=== PATIENT | female | born 1950 | race Caucasian/White ===

== ENCOUNTER 2018-07-11 16:50 | Observation (INO) | payer OTHER ==
--- NOTE | 2018-07-11 17:06 | EDPHY ---
H & P Stated Complaint: CP Time Seen by Provider: 07/11/18 17:06 - Personal History Current Tetanus/Diphtheria Vaccine: Yes - Medical/Surgical History Hx Asthma: No Hx Chronic Respiratory Disease: No Hx Diabetes: No Hx Cardiac Disease: No Hx Renal Disease: No Hx Cirrhosis: No Hx Alcoholism: No Hx HIV/AIDS: No Hx Splenectomy or Spleen Trauma: No Other PMH: HTN, GERD, NEUROPATHY, ARTHRITIS - Social History Smoking Status: Never smoked Constitutional: Initial Vital Signs Temperature (C) 36.6 C 07/11/18 17:02 Heart Rate 105 H 07/11/18 17:02 Respiratory Rate 16 07/11/18 17:02 Blood Pressure 155/101 H 07/11/18 17:02 O2 Sat (%) 95 07/11/18 17:02 O2 Delivery Mode Room Air Allergies/Adverse Reactions: moxifloxacin [From Avelox] Allergy (Verified 07/11/18 17:00) Home Medications: Medication Instructions Recorded Aspirin 81mg (*) 07/11/18 Diltiazem 07/11/18 Gabapentin 07/11/18 Naproxen 07/11/18 Protonix 07/11/18 Robaxin-750 07/11/18 Valsartan 07/11/18 Xanax 07/11/18 Medical Decision Making - Diagnostics Imaging Results: Imaging Impressions Chest/Thorax CTA 07/11/18 17:38 Impression: 1. Technically suboptimal assessment of the segmental branches because of the IV contrast bolus. Consider repeat CT imaging for more conclusive evaluation. There is no evidence of a central pulmonary artery saddle embolus. There is no secondary evidence of elevated right-sided heart pressures. 2. LAD coronary artery atherosclerotic calcification. 3. Sequela of old granulomatous disease. Findings were discussed with Liang Gutierrez MD at 18:29, on 07/11/2018. He indicated that the patient would be admitted and may undergo coronary artery heart catheterization given her extensive LAD atherosclerotic calcific plaque ( a repeat bolus/CTPA to more conclusively reevaluate the pulmonary arterial tree is deferred at this point). Imaging: Discussed imaging studies w/ manager call Radiologist, I viewed and interpreted images myself ED Course/Re-evaluation: CHIEF COMPLAINT: Chest pain HISTORY OF PRESENT ILLNESS: The patient is a 67 y/o female with a history of GERD and hypertension complaining of chest pain onset 3 days ago. Around one year ago she saw a postal service mail processor in [place] and had a normal stress test. She did not have a heart catheterization at that time. Several days ago her symptoms began; she primarily has a sharp pain under her left breast and some pain under her sternum. There is a mild sensation of chest pressure and left arm pain but she is unsure if it is due to an old shoulder injury. These symptoms are similar to her GERD but do not improve like normal GERD episodes. Drinking water and taking a baby aspirin did not alleviate her symptoms. She did recently drive to [place] from [place]. No fever, headache, shortness of breath, abdominal pain, urinary or bowel complaints, numbness, paresthesias. She does have significant familial cardiac history. REVIEW OF SYSTEMS: A comprehensive 10 system review of systems is otherwise negative aside from elements mentioned in the history of present illness and medical decision making. PHYSICAL EXAM: HR, BP, O2 Sat, RR. Temp noted General Appearance: Alert, well hydrated, appropriate, and non-toxic appearing. Head: Atraumatic without scalp tenderness or obvious injury Eyes: Pupils equal, round, reactive to light and accommodation, EOMI, no trauma , no injection. Ears: Clear bilaterally, no perforation, normal landmarks Nose: Atraumatic, no rhinorrhea, clear. Throat: There is no erythema or exudates, no lesions, normal tonsils, mucus membranes moist. Neck: Supple, 2+ carotid upstroke, nontender, no lymphadenopathy. Respiratory: No retractions, no distress, no wheezes, and no accessory muscle use. Lungs are clear to auscultation bilaterally. Cardiovascular: Regular rate and rhythm, no murmurs, rubs, or gallops. Bilateral carotid, radial, dorsalis pedis, and posterior tibial pulses intact. Good capillary refill all extremities. Gastrointestinal: Abdomen is soft, nontender, non-distended, no masses, no rebound, no guarding, no peritoneal signs. Musculoskeletal: Normal active ROM of all extremities, atraumatic. Neurological: Alert, appropriate, and interactive. The patient has normal DTRs and non-focal cranial nerves, motor, sensory, and cerebellar exam. Skin: No rashes, good turgor, no nodules on palpation. Past medical history: Hypertension, GERD, neuropathy, arthritis, DVT while Past surgical history: Denies Family history: Father had a stroke at 56, Mother of CHF, Grandparents had KS's, Brother and sister do not have any known cardiac disease Social history: at bedside, retired, originally from [place] DIAGNOSTICS/PROCEDURES/CRITICAL CARE TIME: EKG: The 12 lead EKG was interpreted by myself as sinus rhythm with a rate of 94 , possible lateral ischemia. See hard copy and/or "tracemaster" electronic copy for interpretation. Chest CTA: The contrast bolus was inadequate so this is an inadequate PE study. There is no evidence of a central PE. There is significant LAD calcification on the study. DIFFERENTIAL DIAGNOSIS: The differential diagnosis for the patient's chest pain included but was not limited to myocardial ischemia, pulmonary embolus, chest wall pain, pleural inflammation, and pulmonary infectious causes. MEDICAL DECISION MAKING: The patient is a 67 y/o female with a history of GERD and hypertension presenting with left-sided and sternal chest pain, onset 3 days ago. She has a normal physical exam but significant familial cardiac history. She also recently drove home to [place] from [place]. Labs and EKG ordered. 1700: I interpreted patient's EKG as sinus rhythm with a rate of 94 and a possible lateral ischemia. Labs still pending. 1735: Patient's D-dimer is elevated but she does have a normal troponin; chest CTA ordered. Patient's troponin is very sensitive due to the length of time of her symptoms and she has a low heart score. 1820: I spoke with Dr. Mcclain, radiologist, regarding patient's chest CTA. The contrast bolus was inadequate so this is an inadequate PE study. There is no evidence of a central PE. There is significant LAD calcification on the study. She will need to be admitted for further evaluation and observation. Cardiology and hospitalist paged. 1826: Reassessed patient and discussed imaging and laboratory study findings with the patient. She reports that she had some calcification in the LAD in [place] during prior studies, but there was no further investigation. I have shared my decision making with the patient. Patient and her are comfortable with plan for admission. 1828: I consulted with the hospitalist service, Dr. Orellana accepts admission of this patient for further observation and evaluation. Cardiology consult still pending. 1838: I consulted with Dr. Guevara, postal service mail processor, regarding this patient. He agrees to consult on this patient during her admission. - Data Points Laboratory Results: Laboratory Results 02/11/19 17:05 07/11/18 17:05 07/11/18 07/11/18 07/11/18 17:14 17:05 17:05 WBC RBC Hgb Hct MCV MCH MCHC RDW Plt Count MPV Neut % (Auto) Lymph % (Auto) [place] % (Auto) Eos % (Auto) Baso % (Auto) Nucleat RBC Rel Count Absolute Neuts (auto) Absolute Lymphs (auto) Absolute Monos (auto) Absolute Eos (auto) Absolute Basos (auto) Absolute Nucleated RBC Immature Gran % Immature Gran # D-Dimer 0.76 ug/mLFEU H ug/mLFEU (0.00-0.50) Sodium 136 mEq/L mEq/L (135-145) Potassium 4.0 mEq/L mEq/L (3.5-5.2) Chloride 105 mEq/L mEq/L (97-110) Carbon Dioxide 23 mEq/l mEq/l (22-31) Anion Gap 8 mEq/L mEq/L (6-14) BUN 20 mg/dL mg/dL (7-23) Creatinine 0.8 mg/dL mg/dL (0.6-1.0) Estimated GFR > 60 Glucose 120 mg/dL H mg/dL (70-100) Calcium 9.9 mg/dL mg/dL (8.5-10.4) POC Troponin I 0.00 ng/mL ng/mL (0.00-0.08) NT-Pro-B Natriuret Pep 64 pg/mL pg/mL (0-125) 07/11/18 17:05 WBC 7.80 10^3/uL 10^3/uL (3.80-9.50) RBC 4.75 10^6/uL 10^6/uL (4.18-5.33) Hgb 13.4 g/dL g/dL (12.6-16.3) Hct 40.6 % % (38.0-47.0) MCV 85.5 fL fL (81.5-99.8) MCH 28.2 pg pg (27.9-34.1) MCHC 33.0 g/dL g/dL (32.4-36.7) RDW 13.9 % % (11.5-15.2) Plt Count 339 10^3/uL 10^3/uL (150-400) MPV 9.2 fL fL (8.7-11.7) Neut % (Auto) 59.8 % % (39.3-74.2) Lymph % (Auto) 24.0 % % (15.0-45.0) [place] % (Auto) 9.9 % % (4.5-13.0) Eos % (Auto) 5.0 % % (0.6-7.6) Baso % (Auto) 1.0 % % (0.3-1.7) Nucleat RBC Rel Count 0.0 % % (0.0-0.2) Absolute Neuts (auto) 4.67 10^3/uL 10^3/uL (1.70-6.50) Absolute Lymphs (auto) 1.87 10^3/uL 10^3/uL (1.00-3.00) Absolute Monos (auto) 0.77 10^3/uL 10^3/uL (0.30-0.80) Absolute Eos (auto) 0.39 10^3/uL 10^3/uL (0.03-0.40) Absolute Basos (auto) 0.08 10^3/uL 10^3/uL (0.02-0.10) Absolute Nucleated RBC 0.00 10^3/uL 10^3/uL (0-0.01) Immature Gran % 0.3 % % (0.0-1.1) Immature Gran # 0.02 10^3/uL 10^3/uL (0.00-0.10) D-Dimer Sodium Potassium Chloride Carbon Dioxide Anion Gap BUN Creatinine Estimated GFR Glucose Calcium POC Troponin I NT-Pro-B Natriuret Pep Point of Care Test Results: Chemistry 07/11/18 17:14 POC Troponin I 0.00 ng/mL ng/mL (0.00-0.08) Departure - Departure Disposition: [facility] Inpatient Acute Clinical Impression: Chest pain Qualifiers: Chest pain type: other chest pain Qualified Code(s): R07.89 - Other chest pain Condition: Fair Instructions: Chest Pain (ED) Additional Instructions: 1. Follow-up with your primary doctor within 72 hours. 2. Return to the Emergency Department for fever, chest pain, shortness of breath , increasing pain or other worsening of condition. 3. Follow up with a postal service mail processor for further testing, as soon as possible, within one week. 4. As we discussed, it is impossible to fully rule out heart disease as the cause of your chest pain in the emergency department. We would be happy to reevaluate you and observe you in the hospital at any time. Referrals: Norma Ontiveros MD [Primary Care Provider] - As per Instructions Stephan Guevara MD [Medical Doctor] - As per Instructions Report Scribed for: Liang Gutierrez Report Scribed by: Laurie Vale Date of Report: 07/11/18 Time of Report: 17:25
[2018-07-11 17:33] LABS: PLATELET COUNT 339 10^3/uL (150-400)
[2018-07-11] MEDS ORDERED: IOHEXOL 350mgI/ML (OMNIPAQUE) 150 ML BTL IV ONE (17:46)
[2018-07-11] MEDS ORDERED: ONDANSETRON DISINTEGRATING 4 MG TAB PO PRN (19:25)
[2018-07-11] MEDS ORDERED: ACETAMINOPHEN 325 MG TAB PO PRN ×2 (19:25→20:33)
[2018-07-11] MEDS ORDERED: ONDANSETRON 4 MG/2 ML VIAL IVP PRN (19:25)
--- NOTE | 2018-07-11 19:44 | PDGENHP ---
History and Physical - Chief Complaint Chest pain - History of Present Illness This is a 67 y/o female with history of HTN, GERD, neuropathy and arthritis presenting to the emergency room after experiencing intermittent chest pain for the last 3 days. Nothing provokes it. It radiates to her left shoulder but she is hesitant to say it is from the chest pain because she has had a left shoulder injury in the past. Chest pain is characterized as dull sharp sometimes underneath her left nipple and sometimes to her sternum. It comes at random, doesn't appear to be only during exertional episodes. She often confuses it for her acid reflux however this time the pain does not go away. She recently moved from [place] in February to be closer to her children and grandchildren. She reports flying out to [place] last Wednesday and drove her car over the weekend back to [place] making frequent pit-stops with her . She has had this in the past. In fact, she had a warp spinner in [place] and had a chemical stress test performed less than a year ago which was unremarkable. Denies vomiting, fevers, chills, diarrhea, shortness of breath. She is being admitting for further diagnostic work-up and monitoring. Past Medical History: HTN, GERD, neuropathy, arthritis Past Surgical History: Total hysterectomy s/p uterine CA stage I (~2011), Cholecystectomy (~2008), L4-L5 fusion (~2008) Social: , lives in [place], recently moved from [place]. 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 Denies tobacco or illicit drug use. Occasionally drinks wine, ~2 glasses/week. History Information - Allergies/Home Medication List Allergies/Adverse Reactions: moxifloxacin [From Avelox] Allergy (Verified 07/11/18 17:00) Home Medications: Aspirin 81mg (*) 07/11/18 [Last Taken Unknown] Diltiazem 07/11/18 [Last Taken Unknown] Gabapentin 07/11/18 [Last Taken Unknown] Naproxen 07/11/18 [Last Taken Unknown] Protonix 07/11/18 [Last Taken Unknown] Robaxin-750 07/11/18 [Last Taken Unknown] Valsartan 07/11/18 [Last Taken Unknown] Xanax 07/11/18 [Last Taken Unknown] I have personally reviewed and updated: family history, medical history, social history, surgical history Past Medical History: See HPI list - Surgical History Additional surgical history: See HPI list - Family History Additional family history: Father had a stroke at age 56. Mother of CHF - Social History Smoking Status: Never smoked Alcohol Use: Occasionally Drug Use: None Review of Systems Review of Systems: ROS: 10pt was reviewed & negative except for what was stated in HPI & below Constitutional: Reports: no symptoms EENMT: Reports: no symptoms Cardiac: Reports: chest pain Respiratory: Reports: no symptoms Gastrointestinal: Reports: nausea (Mild) Genitourinary: Reports: no symptoms Muscolosketal: Reports: no symptoms Skin: Reports: no symptoms Neurological: Reports: no symptoms Hematologic/Lymphatic: Reports: no symptoms Immunologic/Allergy: Reports: other (Moxifloxacin) Physical Exam Physical Exam: Lab data and imaging were reviewed. Case discussed with admitting physician, Dr. Jose Alberto Orellana Trop: 0.00 D-Dimer: 0.76 EKG: Sinus tachycardia CTA Chest: No evidence of central pulmonary artery saddle embolus. LAD coronary artery atherosclerotic calcification. It was noted imaging was suboptimal of the segmental branches because of the IV contrast bolus. Temp Pulse Resp BP Pulse Ox 36.6 C 105 H 16 155/101 H 95 07/11/18 17:02 07/11/18 17:02 07/11/18 17:02 07/11/18 17:02 07/11/18 17:02 Constitutional: no apparent distress, appears nourished, not in pain Eyes: PERRL, anicteric sclera, EOMI Ears, Nose, Mouth, Throat: moist mucous membranes, hearing normal, ears appear normal, no oral mucosal ulcers Cardiovascular: regular rate and rhythym, no murmur, rub, or gallop, tachycardia , No edema Peripheral Pulses: 2+: dorsalis-pedis (R) (Radial 2+), dorsalis-pedis (L) ( Radial 2+) Respiratory: no respiratory distress, no rales or rhonchi, clear to auscultation Gastrointestinal: normoactive bowel sounds, soft, non-tender abdomen, no palpable masses Genitourinary: no bladder fullness, no bladder tenderness Skin: warm, normal color, no rashes or abrasions, no fluctuance, no induration, No mottled Musculoskeletal: full muscle strength, no muscle tenderness, normal joint ROM, no joint effusions Neurologic: AAOx3, sensation intact bilaterally, CN II-XII Intact Psychiatric: interacting appropriately, not anxious, not encephalopathic, thought process linear Lymph, Heme, Immunologic: no cervical LAD, no supraclavicular LAD Lab Data & Imaging Review 07/11/18 17:05 07/11/18 17:05 WBC 7.80 10^3/uL (3.80-9.50) 07/11/18 17:05 RBC 4.75 10^6/uL (4.18-5.33) 07/11/18 17:05 Hgb 13.4 g/dL (12.6-16.3) 07/11/18 17:05 Hct 40.6 % (38.0-47.0) 07/11/18 17:05 MCV 85.5 fL (81.5-99.8) 07/11/18 17:05 MCH 28.2 pg (27.9-34.1) 07/11/18 17:05 MCHC 33.0 g/dL (32.4-36.7) 07/11/18 17:05 RDW 13.9 % (11.5-15.2) 07/11/18 17:05 Plt Count 339 10^3/uL (150-400) 07/11/18 17:05 MPV 9.2 fL (8.7-11.7) 07/11/18 17:05 Neut % (Auto) 59.8 % (39.3-74.2) 07/11/18 17:05 Lymph % (Auto) 24.0 % (15.0-45.0) 07/11/18 17:05 [place] % (Auto) 9.9 % (4.5-13.0) 07/11/18 17:05 Eos % (Auto) 5.0 % (0.6-7.6) 07/11/18 17:05 Baso % (Auto) 1.0 % (0.3-1.7) 07/11/18 17:05 Nucleat RBC Rel Count 0.0 % (0.0-0.2) 07/11/18 17:05 Absolute Neuts (auto) 4.67 10^3/uL (1.70-6.50) 07/11/18 17:05 Absolute Lymphs (auto) 1.87 10^3/uL (1.00-3.00) 07/11/18 17:05 Absolute Monos (auto) 0.77 10^3/uL (0.30-0.80) 07/11/18 17:05 Absolute Eos (auto) 0.39 10^3/uL (0.03-0.40) 07/11/18 17:05 Absolute Basos (auto) 0.08 10^3/uL (0.02-0.10) 07/11/18 17:05 Absolute Nucleated RBC 0.00 10^3/uL (0-0.01) 07/11/18 17:05 Immature Gran % 0.3 % (0.0-1.1) 07/11/18 17:05 Immature Gran # 0.02 10^3/uL (0.00-0.10) 07/11/18 17:05 D-Dimer 0.76 ug/mLFEU (0.00-0.50) H 07/11/18 17:05 Sodium 136 mEq/L (135-145) 07/11/18 17:05 Potassium 4.0 mEq/L (3.5-5.2) 07/11/18 17:05 Chloride 105 mEq/L (97-110) 07/11/18 17:05 Carbon Dioxide 23 mEq/l (22-31) 07/11/18 17:05 Anion Gap 8 mEq/L (6-14) 07/11/18 17:05 BUN 20 mg/dL (7-23) 07/11/18 17:05 Creatinine 0.8 mg/dL (0.6-1.0) 07/11/18 17:05 Estimated GFR > 60 07/11/18 17:05 Glucose 120 mg/dL (70-100) H 07/11/18 17:05 Calcium 9.9 mg/dL (8.5-10.4) 07/11/18 17:05 POC Troponin I 0.00 ng/mL (0.00-0.08) 07/11/18 17:14 NT-Pro-B Natriuret Pep 64 pg/mL (0-125) 07/11/18 17:05 Assessment & Plan Plan: This is a 67 y/o female presenting with 3-days worth of intermittent chest pain with radiation to left shoulder, however she has experienced this in the past and was followed by a warp spinner where she previously lived in [place]. Per pt, she had a chemical stress test about a year ago and it was unremarkable. She also reports the warp spinner was aware of her LAD calcification but "were on the fence," whether to proceed with a catheterization. Differential diagnoses are: ACS, angina, musculoskeletal, pleuritic pain, pulmonary embolism. 1. Chest pain: heart score 4(moderate suspicious, age, risk factors). -Cards consulted. Dr. Stephan Guevara to evaluate pt. -Cont tele monitoring -Echo pending -Lipid panel tomorrow -Cycle trop x 1 tonight, 1 in AM -EKG x 1 tonight, and then PRN -Doppler BLE in AM to r/o DVT; Chest CTA was suboptimal d/t IV contrast bolus and did not assess segmental branches however no central PE. She is at higher risk for blood clot d/t her age, weight, hx of CA and recent sedentary travels of flying and driving across country. Will perform doppler tomorrow. If still symptomatic, would consider repeat chest CTA to evaluate segmental branches. -Ice/hot packs to shoulder - may be musculoskeletal. 2. HTN: stable and may continue home medications 3. GERD: continue home medications Diet: Cardiac VTE ppx: SCDs, Lovenox subq Code: Full Dispo: Admit to obs
[2018-07-11] MEDS ORDERED: CARBOXYMETHYLCELLULOSE 1% 0.4 ML DROPERETTE EACHEYE PRN (20:33)
[2018-07-11] MEDS ORDERED: ALPRAZolam 0.25 MG TAB PO PRN (20:33)
[2018-07-11] MEDS ORDERED: ASPIRIN EC 81 MG TAB PO PRN (20:33)
[2018-07-11] MEDS ORDERED: ENOXAPARIN 40 MG/0.4 ML SYR SC SCH (21:00)
[2018-07-11] MEDS ORDERED: FLUTICASONE NASAL 120 SPRAYS/16 GM MDI EACHNARE PRN (21:00)
[2018-07-11] MEDS ORDERED: DILTIAZEM XR 240 MG CAP PO SCH (21:00)
[2018-07-11] MEDS ORDERED: GABAPENTIN 100 MG CAP PO SCH (21:00)
[2018-07-11] MEDS ORDERED: hydrALAZINE 20 MG/ML VIAL IVP PRN (21:37)
[2018-07-11] MEDS: FAMOTIDINE 20 MG TAB PO SCH (22:05)
--- NOTE | 2018-07-11 23:39 | GHP ---
[f rep st] HISTORY AND PHYSICAL DATE OF ADMISSION: 07/11/2018 CHIEF COMPLAINT: Chest pain. HISTORY OF PRESENT ILLNESS: The patient is a 67-year-old female with a past medical history of hyper tension and known coronary artery calcifications, who has been in the process of moving from [place] to [place], [place], and has noted recurrent, intermittent sharp left-sided chest pains over the darío or days, and presented to the [facility] emergency room for additional evaluation. S he has been under the care of a quirk sander in [place] and reports having nuclear medicine stress te sting over the prior years, which has been reportedly negative. This stress testing was done due to the presence of known coronary artery calcifications and her complaints of recurrent chest discomfort . She had been told in the past that if her symptoms continued that potentially the next step would be a cardiac catheterization. Her initial troponin was undetectable, and her initial ECG did not humza w any evidence of active ischemia. Cardiology was consulted by the emergency room on her case. She additionally had a CT angiography of the chest to evaluate for the possibility of a pulmonary embolis m. This was a suboptimal study but did not show any evidence of a central pulmonary embolism or sadd le pulmonary embolism. Furthermore, there was no evidence of elevated right-sided heart pressures. The patient denies having any calf pain or leg swelling that is new. For past medical history, past surgical history, medications, allergies, family history, social histo ry, and review of systems please also refer to admission H and P dictated by Leela Camilo. PHYSICAL EXAM: VITAL SIGNS: Temperature 36.6, blood pressure initially 155/101, heart rate initiall y 105, respirations 18, satting 95% on room air. GENERAL: Patient is sitting in a chair at the beds alethea, awake, alert, conversant, no acute distress, having her evening meal with her . HEENT: Extraocular movements appear intact. No scleral icterus. NECK: Supple. No thyroid enlargement is appreciated. CHEST: Clear to auscultation with normal respiratory effort. HEART: Regular rate and rhythm. No murmurs are noted. ABDOMEN: Soft, nontender, nondistended. Normal bowel sounds. : No Greco catheter in place. EXTREMITIES: No significant pitting edema or calf pain with palpation. She does have a chronic right lower extremity edema, which she states appears stable. NEUROLOGIC: Cranial nerves 2 through 12 appear grossly intact with 5/5 strength in extremities. LABS: White blood cell count 7, hemoglobin 13, platelets 339. Sodium 136, potassium 4.0, chloride 1 05, bicarb 23, BUN 20, creatinine 0.8, glucose of 120. D-dimer 0.76. BNP 64. Troponin 0.00. ASSESSMENT AND PLAN: Chest pain. The patient has had an intermittent, sharp-quality, left-sided kem st pain, which lasts 1-2 seconds each time. There has been no association with exertion with this pa in. She has a history of known coronary artery calcifications but has had negative nuclear medicine stress testing by her report over the past 1-2 years done with her quirk sander in [place]. She will be admitted overnight for serial troponins and Cardiology consultation. Cardiology has already been consulted by the emergency room attending. Otherwise, at the time of my evaluation, the patient rem ained chest pain free. So, for now, I recommend continuing with her current daily aspirin therapy. Obtain lipids with morning labs. Continue current antihypertensives and add IV hydralazine on an as- needed basis. Otherwise, I concur with the recommendations as detailed by Leela Camilo. /[id number]/[id number]
[2018-07-12 05:19] LABS: PLATELET COUNT 294 10^3/uL (150-400)
--- NOTE | 2018-07-12 08:15 | GCON ---
[f rep st] CONSULTATION CARDIOLOGY CONSULTATION CHIEF COMPLAINT: Left-sided chest pain. HISTORY OF PRESENT ILLNESS: This is a 67-year-old female with history of hypertension, GERD, who pre sents to [facility] with complaints of left-sided chest pain and discomfort. The clairee aye indicates that she has had this type of chest pain before, and it is not related to exertion. She indicates that she has moved from [place] to [place], [place], and in the last 15 hours had this di scomfort in her left side substernal chest area and left arm. Usually this pain, she indicates, reso lves by itself or with anti-GERD medication. This was not the case yesterday, and came to the emerge ncy room. In the emergency room, she was found to be hypertensive with a blood pressure of 170/110. The patient indicates being compliant with her medications. However, she clearly admits not restric ting her salt/dietary issues. The patient had a CTA of the chest, which did not show any PE, but did show some LAD calcifications. The patient is cognizant of her history and indicated that she saw a shed hand in [place] where she had a stress test performed, which was apparently "normal." Her tr oponins are negative x3 sets. ECG in the ER showed sinus rhythm with no acute ST changes. The angelica griffiths is currently being seen on the floor, where her blood pressure is 110/70, heart rate is 72. She i s feeling much better with no current chest discomfort. PAST MEDICAL HISTORY: GERD, hypertension. HOME MEDICATIONS: Please see patient's attached list. SOCIAL HISTORY: No smoking, no drinking. REVIEW OF SYSTEMS: Patient currently denies any visual changes. No headache. No jaw pain. No neck pain. No back pain. No current chest pain. No abdominal discomfort. No shortness of breath. No lower extremity pain. No neurologic deficits. PHYSICAL EXAMINATION: VITAL SIGNS: Afebrile, 96. Blood pressure 110/70, heart rate 72, respiratory rate 12, saturating 95% on room air. HEENT: Pupils equal, round, reactive to light and accommodati on. Extraocular muscles intact. CARDIOVASCULAR: Exam is regular rate and rhythm. S1, S2. LUNGS: Clear to auscultation bilaterally. ABDOMEN: Soft, nontender, no guarding. EXTREMITIES: No clubbi ng, no cyanosis, no edema. NEUROLOGIC: Awake and alert x3. LABORATORY VALUES: Currently show troponins negative x3 sets. LDL of 92. ASSESSMENT AND PLAN: Chest pain at this time the patient is chest pain-free. Her chest pain had hap pened at rest, and she denied any exertional discomfort. She, apparently, had a recent stress test, which was not "normal." We will check a cardiac echo. Administer strict blood pressure control with her home medications and p.r.n. hydralazine. Additionally, if the patient is not allergic to statin s, I would suggest starting one given her left anterior descending calcification on computed tomograp hic angiography, as well as LDL of 92. We will have the patient ambulate today. If any further disc omfort develops despite optimal blood pressure control, then cardiac catheterization will be the next logical step. Additionally, she has a lower extremity venous ultrasound that has been ordered. We will await the results of this study as well. Thank you for the consultation. We will continue to follow. /[id number]/MODL
[2018-07-12] MEDS ORDERED: VALSARTAN 160 MG TAB PO SCH (09:00)
[2018-07-12] MEDS ORDERED: PANTOPRAZOLE SODIUM 40 MG TAB PO SCH (09:00)
[2018-07-12] MEDS ORDERED: HYDROCHLOROTHIAZIDE 12.5 MG CAP PO SCH (09:00)
[2018-07-12] MEDS: FAMOTIDINE 20 MG TAB PO SCH (09:38)
--- NOTE | 2018-07-12 14:41 | ECHO ---
[email or web address] [address] [address] Main: [phone] Fax: Transthoracic Echocardiogram Name: MINH HERNDON MR#: [id number] Study Date: 07/12/2018 Study Time: 11:39 AM Date of : 1950 Age: 67 year(s) Height: 162.6 cm (64 in.) Weight: 104.33 kg (230 lb.) BSA: 2.08 m2 Gender: Female Examination: Echo Indication: Chest Pain Image Quality: Excellent Contrast: Requested by: Kylie Camilo BP: / Heart Rate: Rhythm: Indication: Chest Pain Procedure Staff Stone Polisher: Anika Avelar RDCS Reading Physician: Tio Islas MD Requesting Provider: Conclusions: Normal size left ventricle. The ejection fraction is estimated to be 65-70 %. No regional wall motion abnormality. Mild tricuspid regurgitation is present. There are no significant valvular abnormalities. Measurements: Chambers Valvular Assessment AV/MV Valvular Assessment TV/PV Normal Normal Normal Name Value Range Name Value Range Name Value Range Ao Emiliana (MM): 3.2 cm (2.2 cm-3.7 AV Vmax: 1.48 m/s (1 m/s-1.7 TR Vmax: 2.33 mm/s ( - ) cm) m/s) TR PGmax: 22 mmHg ( - ) IVSd (2D): 0.8 cm (0.6 cm-1.1 AV meanP mmHg ( - ) syst. PAP: 27 mmHg ( - ) cm) MV E Vmax: 0.75 m/s ( - ) LVDd (2D): 4.4 cm (3.9 cm-5.3 MV A Vmax: 0.93 m/s ( - ) cm) MV E/A: 0.81 ( - ) LVDs (2D): 2.8 cm (2.1 cm-4 cm) LVPWd (2D): 1.0 cm ( - ) LVEF (BP): 73 % (>=55 %) EF Range: 65-70 % Continued Measurements: Chambers Valvular Assessment AV/MV Valvular Assessment TV/PV Name Value Name Value Name Value LADs: 3.8 cm MV E' Septal: 0.07 m/s CVP (est.): 5 mmHg LADs Lon.8 cm MV E/E' Septal: 10.30 LA Area: 20.5 cm2 MV E/E' Lateral: 8.00 LA Volume: 50 ml Patient: MINH HERNDON Study Date: 07/12/2018 Page 1 of 2 11:39 AM LA Volume Index: 24.0 ml/m2 Findings: Left Ventricle: Normal size left ventricle. No LV hypertrophy. Normal global systolic LV function. The ejection fraction is estimated to be 65-70 %. No regional wall motion abnormality. Normal diastolic LV function. Right Ventricle: Normal size right ventricle. Left Atrium: The left atrium is normal in size. Right Atrium: The right atrium is normal in size. Mitral Valve: The mitral valve is normal in appearance and function. Aortic Valve: The aortic valve is normal in appearance and function. The aortic valve is tri-leaflet. Tricuspid Valve: The tricuspid valve is normal in appearance and function. Mild tricuspid regurgitation is present. Pulmonic Valve: The pulmonic valve is normal in appearance and function. Aorta: The aorta is normal. Pericardium: No pericardial effusion. There is pericardial fat. (No Signature Object) Patient: MINH HERNDON Study Date: 07/12/2018 Page 2 of 2 11:39 AM [id number]
[2018-07-12 15:50] VITALS: BP 128/70
[2018-07-12] MEDS ORDERED: ENOXAPARIN 40 MG/0.4 ML SYR SC SCH (21:00)
== END 2018-07-12 17:56 | disposition home or self-care (01) ==
LOC: F2W 20:48
PROVIDERS: ADMIT Internal Medicine; ATTEND Internal Medicine
DX: R07.9 Chest pain, unspecified (principal); I10 Essential (primary) hypertension; K21.9 Gastro-esophageal reflux disease without esophagitis; R93.0 Abnormal findings on diagnostic imaging of skull and head, not elsewhere classified; G62.9 Polyneuropathy, unspecified; Z86.718 Personal history of other venous thrombosis and embolism; Z85.42 Personal history of malignant neoplasm of other parts of uterus; Z82.3 Family history of stroke; Z82.49 Family history of ischemic heart disease and other diseases of the circulatory system; Z90.710 Acquired absence of both cervix and uterus; Z98.1 Arthrodesis status
CPT/HCPCS: 71275; 93306; 93970; 96372; 99285; G0378; J1650; Q9967; 84484-ER

== ENCOUNTER → 2018-07-27 | Outpatient (CLI) | payer OTHER ==
[~2018-07-27] MED LIST: IOPAMIDOL (ISOVUE 370) 100 ML BTL IV ONE; NITROGLYCERIN 0.4 MG BTL SL ONE
== END ==
LOC: FIMAGING 11:39
PROVIDERS: ATTEND Internal Medicine Cardiovascular Disease
DX: I25.10 Atherosclerotic heart disease of native coronary artery without angina pectoris (principal); E78.5 Hyperlipidemia, unspecified; E11.9 Type 2 diabetes mellitus without complications
CPT/HCPCS: 75574; Q9967; 82565-PO